=== PATIENT | female | born 1950 | race American Indian/Alaskan Native ===

== ENCOUNTER 2017-04-13 22:05 | Inpatient (IN) | payer OTHER ==
[2017-04-13 22:51] LABS: Basophils % (Auto) 1.4 % (0.0-1.8); Eosinophils % (Auto) 3.9 % (0.0-4.3); Hemoglobin 19.5 gm/dl (10.1-14.3); Mean Corpuscular HGB Conc 32 % (30-34); Mean Corpuscular Hemoglobin 26 pg (28-32); Mean Corpuscular Volume 82 fl (79-97); Red Blood Count 7.41 M/mm3 (3.65-5.03); Red Cell Distribution Width 15.9 % (13.2-15.2); White Blood Count 6.9 K/mm3 (4.5-11.0)
[2017-04-13 22:55] LABS: Platelet Count 566 K/mm3 (140-440)
[2017-04-13 22:59] LABS: Hematocrit 60.9 % (30.3-42.9)
[2017-04-13 23:05] LABS: Anion Gap 22 mmol/L; BUN/Creatinine Ratio 12.85; Blood Urea Nitrogen 9 mg/dL (7-17); Calcium 9.4 mg/dL (8.4-10.2); Carbon Dioxide 22 mmol/L (22-30); Chloride 94.3 mmol/L (98-107); Glucose 134 mg/dL (65-100); Potassium 3.3 mmol/L (3.6-5.0); Sodium 135 mmol/L (137-145)
[2017-04-14 00:40] LABS: Bilirubin,Urine NEG (Negative); Blood,Urine NEG (Negative); Ketones,Urine TR mg/dL (Negative); Leukocyte Esterase,Urine TR (Negative); Mucus,Urine FEW /HPF; Nitrite,Urine NEG (Negative); Urobilinogen,Urine < 2.0 mg/dL (<2.0)
[2017-04-14] MEDS ORDERED: NACL 0.9% 1000 ML 1,000 ML IV ONE (00:41)
[2017-04-14] MEDS ORDERED: K-DUR PO ONE (00:41)
--- NOTE | 2017-04-14 00:44 | Emergency Department Report ---
HPI - General Chief Complaint: Abdominal Pain Time Seen by Provider: 04/14/17 00:29 - HPI HPI: This is a 67-year-old female who presents to the emergency department with her daughter bedside, who is translating, with complaint of a three-day history of some generalized abdominal discomfort. The patient has a history of chronic left inguinal hernia and says the pain starts in that region and goes throughout the entire abdomen. She denies any nausea, vomiting or diarrhea. She does have a decreased appetite and therefore has not been eating much and therefore has not had a bowel movement in the last 3 days. She denies any abdominal distention. She did not take anything for symptoms prior to presentation. She just came here from [place], she does not have any local primary care physician. She has a past medical history of hypertension and this hernia. She is not a tobacco smoker. ED Past Medical Hx - Past Medical History Previous Medical History?: Yes Hx Hypertension: Yes Additional medical history: ABD HERNIA - Surgical History Past Surgical History?: No - Social History Smoking Status: Never Smoker Substance Use Type: None ED Review of Systems ROS: Stated complaint: CP Other details as noted in HPI Comment: All other systems reviewed and negative Constitutional: denies: chills, fever Eyes: denies: eye pain, eye discharge, vision change ENT: denies: ear pain, throat pain Respiratory: denies: cough, shortness of breath, wheezing Cardiovascular: denies: palpitations, edema Gastrointestinal: abdominal pain. denies: nausea, vomiting, diarrhea Genitourinary: denies: urgency, dysuria, discharge Musculoskeletal: denies: back pain, joint swelling, arthralgia Skin: denies: rash, lesions Neurological: denies: headache, weakness, paresthesias Physical Exam - Physical Exam Vital Signs: Vital Signs 04/13/17 22:15 Temperature 97.6 F Pulse Rate 116 H Respiratory 20 Rate Blood Pressure 142/106 O2 Sat by Pulse 98 Oximetry Physical Exam: GENERAL: The patient is well-developed well-nourished. HEENT: Normocephalic. Atraumatic. Extraocular motions are intact. Patient has moist mucous membranes. Pupils equal reactive to light bilaterally. NECK: Supple. Trachea is midline. CHEST/LUNGS: Clear to auscultation. There is no respiratory distress noted. HEART/CARDIOVASCULAR: Regular. There is no tachycardia. There is no gallop rub or murmur. ABDOMEN: Abdomen is soft. There is some lower abdominal tenderness to palpation. No guarding rebound tenderness. Patient has normal bowel sounds. There is no abdominal distention. There is a reducible left inguinal hernia. SKIN: Skin is warm and dry. NEURO: The patient is awake, alert, and oriented. The patient is cooperative. The patient has no focal neurologic deficits. The patient has normal speech. MUSCULOSKELETAL: There is no tenderness or deformity. There is no limitation range of motion. There is no evidence of acute injury. ED Course Vital Signs 04/13/17 22:15 Temperature 97.6 F Pulse Rate 116 H Respiratory 20 Rate Blood Pressure 142/106 O2 Sat by Pulse 98 Oximetry ED Medical Decision Making - Lab Data Result diagrams: 04/13/17 22:29 04/13/17 22:29 - EKG Data -: EKG Interpreted by Me EKG shows normal: sinus rhythm, axis, intervals, QRS complexes (Q wave to the inferior lead, lead 3), ST-T waves (nonspecific ST-T changes) Rate: tachycardia (120 bpm) - EKG Data When compared to previous EKG there are: previous EKG unavailable Interpretation: other (Q-wave to the inferior lead, lead 3, nonspecific ST-T changes) - Radiology Data Radiology results: report reviewed, image reviewed interpreted by me: Chest x-ray does not show any acute process. Mild hyperinflation of the lungs. No pneumonia, pleural effusion or pneumothorax. Transvaginal ultrasound does not show any torsion. There is a normal-appearing uterus and right ovary but the left ovary is not visualized. MRI of the pelvis is recommended. CT angiography of the chest shows no evidence of pulmonary arterial emboli. COPD with myelofibrosis. No consolidation or effusion. CT of the abdomen and pelvis with IV contrast shows a complex cystic mass identified in the left adnexal region that measures 4 x 3 x 4 cm. There is some fat density in this region. The differential is extensive and will include benign and malignant entities. No evidence of intestinal or urinary tract obstruction. No ileus or enteritis. Moderate fecal debris throughout the colon consistent with constipation. Left inguinal hernia with minimal fat and a nondilated loop of bowel identified in the hernia cavity. - Medical Decision Making 67-year-old female presents emergency Department with her daughter with complaint of some abdominal pain that radiates into her chest. She has a reducible inguinal hernia but this does not appear to be the cause of her discomfort as it is not tender to palpation and it is in fact reducible. Labs show polycythemia with a hematocrit of 60 and hemoglobin of almost 20. Patient had negative troponins 2 this far. With her abdominal and chest pains she had a CT of the abdomen and pelvis and a CT angiography of the chest. CT of the chest does not show any PE or any acute process. CT of the abdomen and pelvis shows concern for a complex left adnexal mass. They recommended ultrasound for further evaluation but the ultrasound was done and did not help there were down in the differential. The patient still continues to have these abdominal discomfort that radiated to the chest. For this reason she'll be admitted to the hospital for further evaluation and treatment. - Differential Diagnosis malignancy, PE, IA, colitis, diverticulitis, hernia Critical Care Time: No Critical care attestation.: If time is entered above; I have spent that time in minutes in the direct care of this critically ill patient, excluding procedure time. ED Disposition Clinical Impression: Polycythemia, Ovarian mass Chest pain Qualifiers: Chest pain type: unspecified Qualified Code(s): R07.9 - Chest pain, unspecified Abdominal pain Qualifiers: Abdominal location: generalized Qualified Code(s): R10.84 - Generalized abdominal pain Hypertension Qualifiers: Hypertension type: essential hypertension Qualified Code(s): I10 - Essential ( primary) hypertension Disposition: OP ADMIT IP TO THIS HOSP Is pt being admited?: Yes Condition: Stable Instructions: Abdominal Pain (ED), Chest Pain (ED), Hypertension (ED) Time of Disposition: 05:25
--- NOTE | 2017-04-14 02:19 | Cat Scan Report ---
FINAL REPORT PROCEDURE: CT ANGIO CHEST TECHNIQUE: Computerized tomographic angiography of the chest was performed after the IV injection of iodinated nonionic contrast including image processing. The image data was postprocessed using 2-dimensional multiplanar reformatted (MPR) and 3-dimensional (MIP and/or volume rendered) techniques. HISTORY: chest pain COMPARISON: No prior studies are available for comparison. FINDINGS: Heart and pericardium: Normal. Thoracic aorta: Normal. Pulmonary vasculature: Normal. Lymph nodes: No enlarged thoracic lymph nodes. Lungs: COPD with mild fibrosis. No consolidation, effusion or pneumothorax. The central airway is patent.. Pleural space: No effusion, thickening, or pneumothorax. Musculoskeletal structures: No significant abnormality. Upper abdominal structures: No significant abnormality. IMPRESSION: There is no evidence of pulmonary arterial emboli. COPD with mild fibrosis. No consolidation or effusion.
--- NOTE | 2017-04-14 02:29 | Cat Scan Report ---
FINAL REPORT PROCEDURE: CT ABDOMEN PELVIS W CON TECHNIQUE: Computerized axial tomography of the abdomen and pelvis was performed after the IV injection of iodinated nonionic contrast. HISTORY: Abd pain COMPARISON: No prior studies are available for comparison. FINDINGS: Visualized lower thorax: No significant abnormality. Liver: Normal size and attenuation. Spleen: Normal size and attenuation. Gallbladder and biliary system: Normal. Pancreas: Normal. Adrenals: Normal. Kidneys: Normal. GI tract: The stomach is normal. Small has a normal caliber. No obstruction, ileus or enteritis. Significant fecal debris identified throughout the colon. The appendix region is normal.. Lymph nodes and mesentery: Normal. Vasculature: Normal. Bladder: Normal. Reproductive organs: The uterus has a normal appearance. In the left adnexal region there is a complex mass measuring 4 x 3 x 4 centimeters. This contains some fat tissue, the differential is extensive and will include benign and malignant entities. Further investigation with ultrasound would be of benefit.. Peritoneum: No free fluid. Musculoskeletal structures: No significant abnormality. Other: Left inguinal hernia with minimal fat and a nondilated loop of bowel identified within the hernia cavity.. IMPRESSION: There is a complex cystic mass identified in the left adnexal region this measures 4 x 3 x 4 centimeters. There is some fat density this region. The differential is extensive and will include benign and malignant entities. Further investigation with ultrasound would be of benefit. The uterus has a normal appearance. No evidence of intestinal or urinary tract obstruction. No ileus or enteritis. Moderate fecal debris throughout the colon consistent with constipation. Left inguinal hernia with minimal fat and a nondilated loop of bowel identified in the hernia cavity.
--- NOTE | 2017-04-14 04:20 | Ultrasound Report ---
FINAL REPORT PROCEDURE: US TRANSVAGINAL TECHNIQUE: Real-time transabdominal sonography in multiple planes of the pelvis was performed. The pelvic structures were not optimally visualized. Transvaginal sonography was then performed to better evaluate the structures and/or abnormalities described below with image documentation. Grayscale, color flow Doppler imaging and velocity spectral waveform analysis of the ovaries was employed (duplex imaging). CPT 63170, 69218, and 30660 HISTORY: ovarian mass, pain COMPARISON: CT abdomen and pelvis of the same date FINDINGS: UTERUS Size: 6.9 x 2.4 x 4.4 cm. Endometrial thickness: 4 mm. Orientation: anteverted. Cervix: Normal. Fibroids/masses: None. RIGHT Ovary: 2.1 x 1.1 x 1.1 cm. Appearance: Normal. Doppler images: Normal spectral waveforms and color flow. The systolic and diastolic velocities are within normal limits. LEFT Ovary: Not visualized on this study Pelvic fluid: None. Other: None. IMPRESSION: The uterus and right ovary have normal size and appearance. The left ovary is not visualized. Further evaluation of the lower pelvic structures with MRI may be appropriate.
--- NOTE | 2017-04-14 04:22 | Ultrasound Report ---
FINAL REPORT PROCEDURE: Pelvic ultrasound, transabdominal and transvaginal. TECHNIQUE: Real-time transabdominal sonography in multiple planes of the pelvis was performed. The pelvic structures were not optimally visualized. Transvaginal sonography was then performed to better evaluate the structures and/or abnormalities described below with image documentation. Grayscale, color flow Doppler imaging and velocity spectral waveform analysis of the ovaries was employed (duplex imaging). CPT 00454, 86550, and 79305 HISTORY: ovarian mass, pain COMPARISON: CT abdomen and pelvis of the same date FINDINGS: UTERUS Size: 6.9 x 2.4 x 4.4 cm. Endometrial thickness: 4 mm. Orientation: anteverted. Cervix: Normal. Fibroids/masses: None. RIGHT Ovary: 2.1 x 1.1 x 1.1 cm. Appearance: Normal. Doppler images: Normal spectral waveforms and color flow. The systolic and diastolic velocities are within normal limits. LEFT Ovary: Not visualized on this study Pelvic fluid: None. Other: None. IMPRESSION: The uterus and right ovary have normal size and appearance. The left ovary is not visualized. Further evaluation of the lower pelvic structures with MRI may be appropriate.
[2017-04-14] MEDS ORDERED: TYLENOL PO PRN (08:02)
[2017-04-14] MEDS ORDERED: MILK OF MAGNESIA PO PRN (08:02)
[2017-04-14] MEDS ORDERED: ZOFRAN IV PRN (08:02)
[2017-04-14] MEDS ORDERED: MORPHINE IV PRN (08:02)
[2017-04-14] MEDS ORDERED: DULCOLAX PR PRN (08:02)
[2017-04-14] MEDS ORDERED: PROTONIX IV ONE (08:14)
[2017-04-14] MEDS ORDERED: DILAUDID IV PRN (08:18)
--- NOTE | 2017-04-14 09:40 | XRay Report ---
AP CHEST :04/14/17 00:42:00 CLINICAL: Cough. COMPARISON:None. FINDINGS: Normal heart and pulmonary vasculature. Mild elevation of the left hemidiaphragm and mild left basal subsegmental atelectasis versus scar. The bones and soft tissues are normal. IMPRESSION: Mild left lower lobe atelectasis versus scar.No CHF or pneumonia.
[2017-04-14] MEDS ORDERED: PROTONIX IV SCH (10:00)
--- NOTE | 2017-04-14 11:46 | Event Note ---
Date: 04/14/17 Received a call for consult on this patient but patient presently down for MRI. Pelvic ultrasound and CT scan results noted and reviewed. Will await the results of her MRI to get a better image of the adnexal mass.
--- NOTE | 2017-04-14 12:17 | Magnetic Resonance Report ---
MRI PELVIS WITHOUTAND WITH CONTRAST: 04/14/17 08:02:00 CLINICAL: Left lower quadrant abdominal pain. Left adnexal mass. COMPARISON : 04/14/17 CT abdomen and pelvis and transvaginal and abdominal pelvic ultrasound. TECHNIQUE: Sagittal, coronal and axial T1 and T2 fat sat sequences plus sagittal, coronal and axial postcontrast T1 fat sequences on a 1.5 Antonella magnet. 15 cc of Multihance was injected intravenously for the contrast portion of the exam. Consent was obtained prior to the administration of contrast. FINDINGS: Normal uterine contour, size and signal. No uterine mass or fibroid. The uterus measures approximately 7.0 cm in length by 3.2 cm AP dimension by 2.5 cm transverse dimension. The endometrium is thickened and measures 8.2 mm AP thickness. The right ovary is normal and measures 2.6 x 1.5 x 2.0 cm. A left adnexal mass presumably arises from the left ovary. This predominant fat signal mass is oval and measures 3.4 x 2.9 x 2.3 cm. No other mass and no free fluid. The rectum and sigmoid colon are normal. The urinary bladder is displaced to the right of midline but is otherwise normal. The bones and soft tissues are normal. IMPRESSION: 1. A 3.4 cm benign dermoid cyst of the left ovary. No other mass. 2. Thick postmenopausal endometrium and otherwise normal uterus. 3. Normal right ovary. 4. No signs to suggest ovarian torsion.
[2017-04-14] MEDS: LOVENOX SUB-Q SCH (13:28)
[2017-04-14] MEDS: NACL 0.9% 1000 ML 1,000 ML IV SCH ×2 (13:30→23:41)
--- NOTE | 2017-04-14 13:54 | History and Physical Report ---
History of Present Illness Date of examination: 04/14/17 Date of admission: 04/14/17 08:02 Chief complaint: Left lower abdominal pain History of present illness: The patient is a 67 years old female with a three day history of worsening abdominal pain. The patient states that for the past five days she has felt bloated and has had a decrease in appetite. three days ago she began having intermittent abdominal pain that initially felt like gas pains but it has now progressed to being nearly constant. The patient has a chronic left inguinal hernia and she reports the pain starts in that area and goes throughout the abdomen. Since yesterday she has had severe abdominal pain. Her last bowel movement was over 3 days ago. She has a history of intermittent constipation but never with this level of pain. Currently, the pain is described as a constant dull, diffuse pain that intermittently becomes sharp and well localized. The sharp pain tends to occur in different locations at different times. The intensity of the pain has been increasing over the past two days and on pain scale she now rates the pain at 8 out of 10. She did not take anything to relief the pain. She denies a recent history of fever, nausea, vomiting, diarrhea, hemoptysis, melena, or hematochezia. She denies a known history of diverticulitis, colon cancer, peptic ulcer disease, gastritis, acid reflux, gall bladder disease or cholelithiasis. She denies a history of smoking or alcohol consumption. Patient has past medical history of hypertension but currently she is not taken her blood pressure medication.Patient also mentioned that she just came in from [place] therefore she does not have a local primary care physician. Past History Past Medical History: hypertension, other (Left inguinal hernia) Past Surgical History: No surgical history Social history: Family history: hypertension Medications and Allergies Allergies Allergy/AdvReac Type Severity Reaction Status Date / Time No Known Allergies Allergy Verified 04/14/17 08:24 Home Medications Medication Instructions Recorded Confirmed Last Taken Type Acetaminophen/Codeine [Tylenol 1 tab PO Q6H PRN #30 tab 04/15/17 Unknown Rx /Codeine # 3 tab] Aspirin EC [Aspirin Enteric Coated 81 mg PO QDAY #30 tablet. 04/15/17 Unknown Rx TAB] Temazepam [Restoril] 15 mg PO QHS PRN #15 capsule 04/15/17 Unknown Rx Active Meds: Active Medications Acetaminophen (Tylenol) 650 mg PO Q4H PRN PRN Reason: Pain MILD(1-3)/Fever >100.5/PATEL Bisacodyl (Dulcolax) 10 mg MA QDAY PRN PRN Reason: Constipation unrelieved by MOM Enoxaparin Sodium (Lovenox) 40 mg SUB-Q DAILY [facility] Sodium Chloride (Nacl 0.9% 1000 Ml) 1,000 mls @ 100 mls/hr IV DIRECT LUANN Magnesium Hydroxide (Milk Of Magnesia) 30 ml PO Q4H PRN PRN Reason: Constipation Morphine Sulfate (Morphine) 2 mg IV Q4H PRN PRN Reason: Pain, Moderate (4-6) Ondansetron HCl (Zofran) 4 mg IV Q4H PRN PRN Reason: N/V unrelieved by Reglan Temazepam (Restoril) 15 mg PO QHS [facility] Review of Systems Constitutional: poor appetite, no weight loss, no weight gain, no fever, no chills, no sweats Ears, nose, mouth and throat: no ear pain, no ear discharge, no tinnitis Breasts: normal Cardiovascular: no chest pain, no orthopnea, no palpitations, no rapid/ irregular heart beat, no syncope, no lightheadedness Respiratory: no cough, no cough with sputum, no excessive sputum, no hemoptysis Gastrointestinal: abdominal pain, constipation, loss of appetite, no nausea, no vomiting, no diarrhea, no hematemesis, no melena Genitourinary Female: no dyspareunia, no dysmenorrhea, no pelvic pain, no flank pain, no urinary frequency, no urgency Musculoskeletal: no neck stiffness, no neck pain, no shooting arm pain Integumentary: no rash, no pruritis Neurological: no head injury, no transient paralysis Psychiatric: no memory loss, no change in sleep habits, no sleep disturbances Endocrine: no cold intolerance, no heat intolerance, no polyphagia, no excessive thirst Hematologic/Lymphatic: no easy bruising, no easy bleeding Allergic/Immunologic: no urticaria, no allergic rhinitis Exam - Constitutional Vitals: Temp Pulse Resp BP Pulse Ox 98.4 F 70 18 134/88 100 04/14/17 10:33 04/14/17 10:33 04/14/17 10:33 04/14/17 10:33 04/14/17 09:27 General appearance: Present: no acute distress, well-nourished - EENT Eyes: Present: PERRL, EOM intact ENT: hearing intact, clear oral mucosa, dentition normal - Neck Neck: Present: supple, normal ROM - Respiratory Respiratory effort: normal - Cardiovascular Heart Sounds: Present: S1 & S2. Absent: rub, click - Extremities Extremities: pulses symmetrical, No edema Peripheral Pulses: within normal limits - Abdominal General gastrointestinal: Present: soft, tender, hernia (Inguinal , reproducible ) Localized gastrointestinal: guarding: LUQ, LLQ Female genitourinary: Present: normal - Rectal Rectal Exam: deferred - Integumentary Integumentary: Present: clear, warm, dry - Musculoskeletal Musculoskeletal: strength equal bilaterally - Psychiatric Psychiatric: appropriate mood/affect, intact judgment & insight - Neurologic Neurologic: CNII-XII intact, moves all extremities Results - Labs CBC & Chem 7: 04/15/17 05:12 04/15/17 05:12 Labs: Laboratory Last Values WBC 6.9 K/mm3 (4.5-11.0) 04/13/17 22:29 RBC 7.41 M/mm3 (3.65-5.03) H 04/13/17 22:29 Hgb 19.5 gm/dl (10.1-14.3) H 04/13/17 22:29 Hct 60.9 % (30.3-42.9) H* 04/13/17 22:29 MCV 82 fl (79-97) 04/13/17 22:29 MCH 26 pg (28-32) L 04/13/17 22:29 MCHC 32 % (30-34) 04/13/17 22:29 RDW 15.9 % (13.2-15.2) H 04/13/17 22:29 Plt Count 566 K/mm3 (140-440) H 04/13/17 22:29 Lymph % (Auto) 44.3 % (13.4-35.0) H 04/13/17 22:29 [place] % (Auto) 10.8 % (0.0-7.3) H 04/13/17 22:29 Eos % (Auto) 3.9 % (0.0-4.3) 04/13/17 22:29 Baso % (Auto) 1.4 % (0.0-1.8) 04/13/17 22:29 Lymph # 3.1 K/mm3 (1.2-5.4) 04/13/17 22:29 [place] # 0.7 K/mm3 (0.0-0.8) 04/13/17 22:29 Eos # 0.3 K/mm3 (0.0-0.4) 04/13/17 22:29 Baso # 0.1 K/mm3 (0.0-0.1) 04/13/17 22:29 Seg Neutrophils % 39.6 % (40.0-70.0) L 04/13/17 22:29 Seg Neutrophils # 2.7 K/mm3 (1.8-7.7) 04/13/17 22:29 Sodium 135 mmol/L (137-145) L 04/13/17 22:29 Potassium 3.3 mmol/L (3.6-5.0) L 04/13/17 22:29 Chloride 94.3 mmol/L (98-107) L 04/13/17 22:29 Carbon Dioxide 22 mmol/L (22-30) 04/13/17 22:29 Anion Gap 22 mmol/L 04/13/17 22:29 BUN 9 mg/dL (7-17) 04/13/17 22:29 Creatinine 0.7 mg/dL (0.7-1.2) 04/13/17 22:29 Estimated GFR > 60 ml/min 04/13/17 22:29 BUN/Creatinine Ratio 12.85 % 04/13/17 22:29 Glucose 134 mg/dL (65-100) H 04/13/17 22:29 Lactic Acid 1.20 mmol/L (0.7-2.0) 04/14/17 01:01 Calcium 9.4 mg/dL (8.4-10.2) 04/13/17 22:29 Troponin T < 0.010 ng/mL (0.00-0.029) 04/14/17 04:46 Lipase 19 units/L (13-60) 04/13/17 22:29 Urine Color Yellow (Yellow) 04/13/17 23:41 Urine Turbidity Clear (Clear) 04/13/17 23:41 Urine pH 5.0 (5.0-7.0) 04/13/17 23:41 Ur Specific [place] 1.010 (1.003-1.030) 04/13/17 23:41 Urine Protein 100 mg/dl mg/dL (Negative) 04/13/17 23:41 Urine Glucose (UA) Neg mg/dL (Negative) 04/13/17 23:41 Urine Ketones Tr mg/dL (Negative) 04/13/17 23:41 Urine Blood Neg (Negative) 04/13/17 23:41 Urine Nitrite Neg (Negative) 04/13/17 23:41 Urine Bilirubin Neg (Negative) 04/13/17 23:41 Urine Urobilinogen < 2.0 mg/dL (<2.0) 04/13/17 23:41 Ur Leukocyte Esterase Tr (Negative) 04/13/17 23:41 Urine WBC (Auto) 5.0 /HPF (0.0-6.0) 04/13/17 23:41 Urine RBC (Auto) 2.0 /HPF (0.0-6.0) 04/13/17 23:41 U Epithel Cells (Auto) < 1.0 /HPF (0-13.0) 04/13/17 23:41 Urine Mucus Few /HPF 04/13/17 23:41 - Imaging and Cardiology Chest x-ray: image reviewed (Normal) Abdominal x-ray: pending CT scan - abdomen: image reviewed (shows a complex cystic ovarian mass) CT scan - chest: image reviewed (COPD with mild fibrosis. No consolidation or effusion) CT scan - pelvis: image reviewed (Ovarian mass), other US - abdomen: image reviewed, other (Transvaginal Normal) MRI - abdomen: image reviewed (1. A 3.4 benign dermoid of the left ovary. No other mass. 2. Thick postmenopausal endometrium and otherwise normal uterus. 3. Normal right ovary.4. No sign to suggest ovarian torsion.) Assessment and Plan Assessment and plan: 1. Generalized Abdominal Pain We will admit to MED/SURG floor Pain controlled with Morphine IVF hydration CT of the abdomen/ Pelvis shows 4x3x4 cm complex cystic mass Cardiac diet 2. complex cystic adnexal mass Ovarian mass history MRI shows a 3.4 cm benign dermoid of the left ovarian , no other mass, thick postmenopausal endometrium and otherwise normal uterus, normal right ovary,no sign to suggest ovarian torsion. 3. Polycythemia Elevated Hgb, HCT and plateate count consulted server security administrator for further evaluation IVF Hydration Lovenox order 4. Hypokalemia Potassium replaced in the ED We will repeat BMP close monitor Electrolytes 4. Left inguinal Hernia CT of the abdomen/Pelvis shows no bowel obstruction or strangulation Discussed with patient to follow up with Primary care provider as OP VTE/GI Prophylaxis Lovenox/Pepcid Plan of care discussed with patient/family: Yes
[2017-04-14 15:24] LABS: Hemoglobin 18.1 gm/dl (10.1-14.3); Mean Corpuscular HGB Conc 32 % (30-34); Mean Corpuscular Hemoglobin 26 pg (28-32); Mean Corpuscular Volume 82 fl (79-97); Platelet Count 481 K/mm3 (140-440); Red Blood Count 6.89 M/mm3 (3.65-5.03); Red Cell Distribution Width 15.6 % (13.2-15.2); White Blood Count 7.8 K/mm3 (4.5-11.0)
--- NOTE | 2017-04-14 15:41 | Consultation ---
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 Patient recently arrived here from [place] was seen in emergency room for abdominal pain. During a workup she received a pelvic ultrasound which had no significant findings abdominal pelvic CT scan which saw adnexal mass and was followed with MRI which included that the patient had 3.4 cm dermoid cyst. Consulted time prior to knowing the results an MRI. Patient presently is lying in hospital bed with minimal complaints states her abdominal pain feels much better. Patient said her last menstrual period was approximately 18 years ago and has no further bleeding since. Past History Past Medical History: hypertension, other (inguinal hernia) Past Surgical History: no surgical history Medications and Allergies Allergies Allergy/AdvReac Type Severity Reaction Status Date / Time No Known Allergies Allergy Verified 04/14/17 08:24 Home Medications Medication Instructions Recorded Confirmed Last Taken Type No Known Home Medications [No 04/14/17 04/14/17 Unknown History Reported Home Medications] Active Meds: Active Medications Acetaminophen (Tylenol) 650 mg PO Q4H PRN PRN Reason: Pain MILD(1-3)/Fever >100.5/PATEL Bisacodyl (Dulcolax) 10 mg [place] QDAY PRN PRN Reason: Constipation unrelieved by MOM Enoxaparin Sodium (Lovenox) 40 mg SUB-Q DAILY [facility] Last Admin: 04/14/17 13:28 Dose: 40 mg Sodium Chloride (Nacl 0.9% 1000 Ml) 1,000 mls @ 100 mls/hr IV DIRECT LUANN Last Admin: 04/14/17 13:30 Dose: 100 mls/hr Magnesium Hydroxide (Milk Of Magnesia) 30 ml PO Q4H PRN PRN Reason: Constipation Morphine Sulfate (Morphine) 2 mg IV Q4H PRN PRN Reason: Pain, Moderate (4-6) Ondansetron HCl (Zofran) 4 mg IV Q4H PRN PRN Reason: N/V unrelieved by Reglan Temazepam (Restoril) 15 mg PO QHS [facility] Review of Systems Gastrointestinal: abdominal pain Genitourinary: deferred, genital sores, no vaginal bleeding, no vaginal discharge, no pelvic pain - Vital Signs Vital signs: Vital Signs Temp Pulse Resp BP Pulse Ox 97.6 F 116 H 20 142/106 98 04/13/17 22:15 04/13/17 22:15 04/13/17 22:15 04/13/17 22:15 04/13/17 22:15 Temp Pulse Resp BP Pulse Ox 98.4 F 70 18 134/88 100 04/14/17 10:33 04/14/17 10:33 04/14/17 10:33 04/14/17 10:33 04/14/17 09:27 - Physical Exam Breasts: Positive: deferred Cardiovascular: Regular rate Abdomen: Positive: normal appearance, soft. Negative: tenderness, guarding Results Result Diagrams: 04/14/17 15:04 04/13/17 22:29 Abnormal lab results 04/14/17 Range/Units 15:04 RBC 6.89 H (3.65-5.03) M/mm3 Hgb 18.1 H (10.1-14.3) gm/dl MCH 26 L (28-32) pg RDW 15.6 H (13.2-15.2) % Plt Count 481 H (140-440) K/mm3 All other labs normal. Assessment and Plan - Patient Problems (1) Ovarian mass Current Visit: Yes Status: Chronic Plan to address problem: Findings on imaging of a dermoid cyst most likely a chronic condition. Due to the size of the cyst unlikely to cause of severe pain. Minute imaging didn't show any ascites or characteristics of malignancy of her adnexa. Further discussion with who actually can communicate with the patient and her family feels that most likely patient and her family brought her to the hospital as customary patient is a newly arrived in [facility] from [place] to have her checked out medically. I believe was found on imaging is benign and not causing any problems. Will sign off. 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
[2017-04-14 15:45] LABS: Hematocrit 56.4 % (30.3-42.9)
[2017-04-14] MEDS: MORPHINE IV PRN (20:27)
[2017-04-14] MEDS ORDERED: RESTORIL PO SCH (22:00)
[2017-04-15] MEDS: MORPHINE IV PRN ×2 (01:45→05:39)
--- NOTE | 2017-04-15 04:18 | Admit Criteria Form ---
Admission Criteria Documentation: ABDOMINAL PAIN Clinical Indications for Admission to Inpatient Care (Place 'X' for any and all applicable criteria): Admission is indicated for ANY ONE of the following(1)(2)(3)(4)(5): [X ]I. Inpatient admission required rather than observation care (Also use Abdominal Pain: Observation Care, as appropriate) because of ANY ONE of the following: [X ]a) Severe pain requiring acute inpatient management [X ]b) Identification of etiology/finding that requires inpatient care (eg, aortic dissection, free air) [ ]c) Absent bowel sounds with complete ileus(6) [ ]d) Suspected toxic megacolon [ ]e) Severe electrolyte abnormalities requiring inpatient care [ ]f) High fever or infection requiring inpatient admission as indicated by ANY ONE of following(7)(8): [ ] i) Appropriate outpatient or observational care antimicrobial treatment unavailable, not effective, or not feasible [ ] ii) Documented bacteremia [ ] iii) Temperature > 104.9 degrees F (oral) [ ] iv) T >103.1 F (oral) or < 96.8 F(rectal) that does not respond to all emergency treatment measures [ ]g) Signs of intestinal obstruction [B] [ ]h) Hemodynamic instability [ ]i) IV fluid to replace significant ongoing losses (greater than 3 L/m2 per day) (12)(13) [ ]j) Percutaneous or open drainage (eg, abscess, biliary tract ) procedures [ ]k) Parenteral nutrition regimen that must be implemented on inpatient basis [ ]l) Other condition,treatment or monitoring requiring inpatient admission. [ ]II. Peritoneal signs present [ ]III. Surgery needed that cannot be performed on an ambulatory basis. [ ]IV. Evaluation requires patient to not eat or drink for extended period ( eg, more than 24 hours). [ ]V. Contraindications and/or Inappropriate clinical situations for Observational Care in patients with abdominal pain, when ANY ONE of the following is required: [ ]a) Thorough evaluation is required to prevent catastrophic events due to delays in diagnosing (e.g.Mesenteric ischemia) 1,3 [ ]b) Patient with severe pathology or with chronic symptoms unlikely to improve in the ED stay (3) [X ]. General contraindications and/or Inappropriate clinical situations for Observational Care in patients with abdominal pain, when ANY ONE of the following is required: [X ]a) Prediction of prolongation of LOS based on ANY ONE of the following may be considered as a contraindication for observational care 2, 3, 4, 5, 6, 7, 8, 9, 10, 11 [X ]i) Age > 65 yrs. [ ]ii) Patient arriving by ambulance [ ]iii) Patient with high acuity [ ]iv) Patient requiring vital sign monitoring [ ]v) Patient on IV medication [ ]b) Systolic blood pressures 180mmHg 3,12 [ ]c) Patient with altered mental status including delirium and other alteration of consciousness, (3) [ ]d) Patient whose discharge disposition will be to a [facility] home or rehabilitation home should not be managed in Emergency Department Observation Unit. CMS rule requires 3 days hospital stay before such placement.3,13 [ ]e) Patient with failure to thrive due to broad array of etiologies 3,16,17 [ ]f) Inability to ambulate 3,14 Extended stay beyond goal length of stay may be needed for(2)(3): [ ]a) Persistent abdominal pain with suspected intra-abdominal process [ ]b) Diagnosed condition requiring continued stay (e.g., pancreatitis, complicated diverticulitis) [ ]c) Surgery (e.g., colectomy) The original [facility] content created by [employer] has been revised. The portions of the content which have been revised are identified through the use of italic text or in bold, and [facility] has neither reviewed nor approved the modified material.All other unmodified content is copyright [employer] Please see references footnoted in the original [facility] edition 2016 Admission Criteria Met: Yes
[2017-04-15 06:01] LABS: Hematocrit 54.1 % (30.3-42.9); Hemoglobin 17.6 gm/dl (10.1-14.3); Mean Corpuscular HGB Conc 33 % (30-34); Mean Corpuscular Hemoglobin 26 pg (28-32); Mean Corpuscular Volume 81 fl (79-97); Platelet Count 460 K/mm3 (140-440); Red Blood Count 6.66 M/mm3 (3.65-5.03); Red Cell Distribution Width 15.4 % (13.2-15.2); White Blood Count 5.4 K/mm3 (4.5-11.0)
[2017-04-15 06:10] LABS: INR 1.29 (0.87-1.13)
[2017-04-15 06:19] LABS: Anion Gap 16 mmol/L; BUN/Creatinine Ratio 8.33; Blood Urea Nitrogen 5 mg/dL (7-17); Calcium 8.5 mg/dL (8.4-10.2); Carbon Dioxide 24 mmol/L (22-30); Chloride 105.4 mmol/L (98-107); Glucose 82 mg/dL (65-100); Potassium 3.9 mmol/L (3.6-5.0); Sodium 141 mmol/L (137-145)
[2017-04-15 06:51] LABS: Anisocytosis 1+; Blastocytes % (Manual) 0 %; Macrocytosis 1+
[2017-04-15 06:52] LABS: Diff Status Complete; Platelet Estimate Consistent w Auto
--- NOTE | 2017-04-15 07:41 | Discharge Summary ---
Providers - Providers Date of Admission: 04/14/17 08:02 Attending physician: CHERYL CALDERON MD 04/14/17 10:25 Consult to Physician [CONS] Routine Consulting Provider: SUKUMAR NORRIS Reason For Exam: polycythemia Place consult to:: DR. JURADO Notified:: DR. JURADO Phone number called:: [phone] Was contact made?: Yes If yes, spoke with:: DR. JURADO Time called:: 11:39 Comment:: MONTSE NOTIFIED Primary care physician: RESIDENTIAL YOUTH COUNSELOR Hospitalization Condition: Stable Hospital course: 67F who pw abdominal pain. She admitted to having a chronic left inguinal hernia , she has abdominal Imaging that was suspicious for an ovarian mass, however she went on to have a pelvic MRI which only showed a benign dermoid cysts. She also had a left inguinal hernia which was perfectly reducible, it was not incarcerated, CT of her abdomen confirmed this. She also had hypokalemic which was repleted, she was found to have significant polycythemia, given the patient has no smoking history no history of cancer she was started on empiric aspirin therapy. She was referred to a bricklayer tender who she should see as an outpatient. Abdominal pain completely resolved prior to discharge. She was discharged home in improved condition Discharge diagnoses Polycythemia Abdominal pain Left ovarian Dermoid cyst Left inguinal hernia, nonincarcerated Hypokalemia Disposition: TO HOME OR SELFCARE Time spent for discharge: 35 minutes Core Measure Documentation - Palliative Care Palliative Care/ Comfort Measures: Not Applicable - Core Measures Any of the following diagnoses?: none Exam - Constitutional Vitals: Temp Pulse Resp BP Pulse Ox 98.9 F 65 18 129/80 97 04/14/17 23:00 04/14/17 23:00 04/14/17 23:00 04/14/17 23:00 04/14/17 23:00 General appearance: Present: no acute distress, well-nourished - EENT Eyes: Present: PERRL ENT: hearing intact, clear oral mucosa - Neck Neck: Present: supple, normal ROM - Respiratory Respiratory effort: normal Respiratory: bilateral: CTA - Cardiovascular Heart Sounds: Present: S1 & S2. Absent: rub, click - Extremities Extremities: pulses symmetrical, No edema Peripheral Pulses: within normal limits - Abdominal General gastrointestinal: Present: soft, non-tender, non-distended, normal bowel sounds Female genitourinary: Present: normal - Integumentary Integumentary: Present: clear, warm, dry - Musculoskeletal Musculoskeletal: gait normal, strength equal bilaterally - Psychiatric Psychiatric: appropriate mood/affect, intact judgment & insight - Neurologic Neurologic: CNII-XII intact, moves all extremities Plan Additional Instructions: You need to see a bricklayer tender in clinic for further workup, details of Dr Mccauley have been included for you, please call and make an appointment. Follow up with: PRIMARY CARE, [Primary Care Provider] - 3-5 Days THEE MCCAULEY MD [Staff Physician] - 7 Days Prescriptions: Temazepam [Restoril] 15 mg PO QHS PRN #15 capsule PRN Reason: Insomnia Acetaminophen/Codeine [Tylenol /Codeine # 3 tab] 1 tab PO Q6H PRN #30 tab PRN Reason: Pain Aspirin EC [Aspirin Enteric Coated TAB] 81 mg PO QDAY #30 tablet.
[2017-04-15] MEDS: NACL 0.9% 1000 ML 1,000 ML IV SCH (09:45)
[2017-04-15] MEDS: LOVENOX SUB-Q SCH (09:46)
[2017-04-15] MEDS ORDERED: PEPCID IV SCH (10:00)
[2017-04-15 12:15] VITALS: BP 107/73
== END 2017-04-15 13:10 | disposition home or self-care (01) | DRG 761 ==
LOC: ED 22:05 → 3A 04-14 08:02
PROVIDERS: ADMIT Internal Medicine; ATTEND Internal Medicine
DX: D27.1 Benign neoplasm of left ovary (principal); I10 Essential (primary) hypertension; K40.90 Unilateral inguinal hernia, without obstruction or gangrene, not specified as recurrent; E87.6 Hypokalemia; D75.1 Secondary polycythemia; J44.9 Chronic obstructive pulmonary disease, unspecified; Z82.49 Family history of ischemic heart disease and other diseases of the circulatory system
CPT/HCPCS: 36415; 71010; 71275; 72197; 74177; 76830; 80048; 81001; 82140; 83690; 84484; 85007; 85025; 85027; 85610; 93005; 93010; 93975; 96374; A9577; J1170; J1650; J2270; J7030; Q9967

== ENCOUNTER 2019-04-11 03:32 | Emergency (ER) | payer MEDICARE, OTHER ==
[2019-04-11 04:22] LABS: Basophils # (Auto) 0.1 K/mm3 (0.0-0.1); Basophils % (Auto) 0.5 % (0.0-1.8); Eosinophils # (Auto) 0.1 K/mm3 (0.0-0.4); Eosinophils % (Auto) 1.1 % (0.0-4.3); Hemoglobin 18.6 gm/dl (10.1-14.3); Lymphocytes # (Auto) 2.2 K/mm3 (1.2-5.4); Mean Corpuscular HGB Conc 32 % (30-34); Mean Corpuscular Volume 81 fl (79-97); Monocytes % (Auto) 7.8 % (0.0-7.3); Red Blood Count 7.08 M/mm3 (3.65-5.03); Red Cell Distribution Width 17.8 % (13.2-15.2)
[2019-04-11 04:40] LABS: Hematocrit 57.4 % (30.3-42.9)
[2019-04-11 04:52] LABS: BUN/Creatinine Ratio 69; Blood Urea Nitrogen 48 mg/dL (7-17); Hemolysis Index 8
[2019-04-11 05:30] LABS: Platelet Count 615 K/mm3 (140-440)
[2019-04-11] MEDS ORDERED: NACL 0.9% 1000 ML 1,000 ML IV ONE ×2 (07:00→09:35)
[2019-04-11] MEDS ORDERED: PROTONIX IV ONE (07:02)
[2019-04-11] MEDS ORDERED: MORPHINE IV ONE (07:02)
[2019-04-11] MEDS ORDERED: ZOFRAN IV ONE (07:02)
[2019-04-11] MEDS ORDERED: ZOSYN/NS 3.375GM/50ML 3.375 GM/50 ML BAG IV ONE (07:30)
[2019-04-11 07:35] LABS: INR 1.04 (0.87-1.13)
[2019-04-11 07:36] LABS: Partial Thromboplastin Time 25.5 Sec. (24.2-36.6)
--- NOTE | 2019-04-11 07:39 | Emergency Department Report ---
ED General Adult HPI - General Chief complaint: GI Bleed Stated complaint: ABD PAIN/BLOOD IN STOOL Time Seen by Provider: 04/11/19 06:50 Source: patient, family Mode of arrival: Ambulatory Limitations: Language Barrier - History of Present Illness Initial comments: This is a 69-year-old female with chronic abdominal pain. She does not speak Yi but she is here with a family member who is also a poor historian. Apparently this patient was admitted here in 2017: 67F who pw abdominal pain. She admitted to having a chronic left inguinal hernia, she has abdominal Imaging that was suspicious for an ovarian mass, however she went on to have a pelvic MRI which only showed a benign dermoid cysts. She also had a left inguinal hernia which was perfectly reducible, it was not incarcerated, CT of her abdomen confirmed this. She also had hypokalemic which was repleted, she was found to have significant polycythemia, given the patient has no smoking history no history of cancer she was started on empiric aspirin therapy. She was referred to a trains service conductor who she should see as an outpatient. Abdominal pain completely resolved prior to discharge. She was discharged home in improved condition Again the patient is attributing her abdominal pain to a chronic and easily reducible left inguinal hernia. As above, she was found to have polycythemia and was referred to a trains service conductor. She had an MRI that showed dermoid cysts. Reason why she came to the emergency department appears to be that her diffuse abdominal discomfort appears to be worse since last night. However, the family states it is clearly a chronic problem. She has not followed up with a primary care physician. She takes no regular medicines. He family member states she had a slight amount of blood in her stool yesterday. -: Gradual, month(s), year(s) Location: pelvis Radiation: non-radiation Quality: aching Improves with: none Worsens with: none Associated Symptoms: denies other symptoms (some nausea no vomiting) Treatments Prior to Arrival: none - Related Data Previous Rx's Medication Instructions Recorded Last Taken Type Acetaminophen/Codeine [Tylenol 1 tab PO Q6H PRN #30 tab 04/15/17 Unknown Rx /Codeine # 3 tab] Aspirin EC 81 mg PO QDAY #30 tablet. 04/15/17 Unknown Rx Temazepam [Restoril] 15 mg PO QHS PRN #15 capsule 04/15/17 Unknown Rx Allergies Allergy/AdvReac Type Severity Reaction Status Date / Time No Known Allergies Allergy Verified 04/14/17 08:24 ED Review of Systems ROS: Stated complaint: ABD PAIN/BLOOD IN STOOL Other details as noted in HPI Constitutional: denies: chills, fever Eyes: denies: eye pain, eye discharge, vision change ENT: denies: ear pain, throat pain Respiratory: denies: cough, shortness of breath, wheezing Cardiovascular: denies: chest pain, palpitations Endocrine: no symptoms reported Gastrointestinal: abdominal pain, nausea, hematochezia (minimal). denies: vomiting, diarrhea Genitourinary: denies: urgency, dysuria, discharge Musculoskeletal: denies: back pain, joint swelling, arthralgia Skin: denies: rash, lesions Neurological: denies: headache, weakness, paresthesias Psychiatric: denies: anxiety, depression Hematological/Lymphatic: denies: easy bleeding, easy bruising ED Past Medical Hx - Past Medical History Previous Medical History?: Yes Hx Hypertension: Yes Additional medical history: ABD HERNIA. Dermoid cysts - Surgical History Past Surgical History?: No - Social History Smoking Status: Never Smoker Substance Use Type: None - Medications Home Medications: Home Medications Medication Instructions Recorded Confirmed Last Taken Type Acetaminophen/Codeine [Tylenol 1 tab PO Q6H PRN #30 tab 04/15/17 Unknown Rx /Codeine # 3 tab] Aspirin EC 81 mg PO QDAY #30 tablet. 04/15/17 Unknown Rx Temazepam [Restoril] 15 mg PO QHS PRN #15 capsule 04/15/17 Unknown Rx ED Physical Exam - General Limitations: Language Barrier General appearance: alert, in no apparent distress - Head Head exam: Present: atraumatic, normocephalic - Eye Eye exam: Present: normal appearance - ENT ENT exam: Present: mucous membranes moist - Neck Neck exam: Present: normal inspection - Respiratory Respiratory exam: Present: normal lung sounds bilaterally. Absent: respiratory distress - Cardiovascular Cardiovascular Exam: Present: regular rate, normal rhythm. Absent: systolic murmur, diastolic murmur, rubs, gallop - GI/Abdominal GI/Abdominal exam: Present: soft, tenderness (mild diffuse), normal bowel sounds, hernia (easily reducible direct left inguinal hernia). Absent: distend ed, guarding, rebound, rigid, organomegaly, mass, bruit, pulsatile mass - Extremities Exam Extremities exam: Present: normal inspection - Back Exam Back exam: Present: normal inspection. Absent: CVA tenderness (R), CVA te nderness (L) - Neurological Exam Neurological exam: Present: alert, oriented X3, CN II-XII intact. Absent: motor sensory deficit - Psychiatric Psychiatric exam: Present: normal affect, normal mood - Skin Skin exam: Present: warm, dry, intact, normal color. Absent: rash ED Course Vital Signs 04/11/19 04/11/19 03:36 06:57 Temperature 98.0 F 98.3 F Pulse Rate 107 H 113 H Respiratory 18 24 Rate Blood Pressure 114/82 Blood Pressure 119/84 [Right] O2 Sat by Pulse 90 96 Oximetry ED Medical Decision Making - Lab Data Result diagrams: 04/11/19 03:57 04/11/19 03:57 Laboratory Results - last 24 hr 04/11/19 04/11/19 04/11/19 03:57 03:57 07:04 WBC 12.2 H RBC 7.08 H Hgb 18.6 H Hct 57.4 H* MCV 81 MCH 26 L MCHC 32 RDW 17.8 H Plt Count 615 H Lymph % (Auto) 18.0 [facility] % (Auto) 7.8 H Eos % (Auto) 1.1 Baso % (Auto) 0.5 Lymph # 2.2 [facility] # 1.0 H Eos # 0.1 Baso # 0.1 Seg Neutrophils % 72.6 H Seg Neutrophils # 8.8 H PT 14.2 INR 1.04 APTT 25.5 Sodium 139 Potassium 4.6 Chloride 100.6 Carbon Dioxide 27 Anion Gap 16 BUN 48 H Creatinine 0.7 Estimated GFR > 60 BUN/Creatinine Ratio 69 Glucose 78 Lactic Acid Calcium 9.0 Magnesium Total Bilirubin Direct Bilirubin Indirect Bilirubin AST ALT Alkaline Phosphatase Total Protein Albumin Albumin/Globulin Ratio Lipase Urine Color Urine Turbidity Urine pH Ur Specific [place] Urine Protein Urine Glucose (UA) Urine Ketones Urine Blood Urine Nitrite Urine Bilirubin Urine Urobilinogen Ur Leukocyte Esterase Urine WBC (Auto) Urine RBC (Auto) Blood Type Antibody Screen 04/11/19 04/11/19 04/11/19 07:04 07:04 07:04 WBC RBC Hgb Hct MCV MCH MCHC RDW Plt Count Lymph % (Auto) [facility] % (Auto) Eos % (Auto) Baso % (Auto) Lymph # [facility] # Eos # Baso # Seg Neutrophils % Seg Neutrophils # PT INR APTT Sodium Potassium Chloride Carbon Dioxide Anion Gap BUN Creatinine Estimated GFR BUN/Creatinine Ratio Glucose Lactic Acid 1.40 Calcium Magnesium 2.10 Total Bilirubin 1.00 Direct Bilirubin 0.2 Indirect Bilirubin 0.8 AST 12 ALT 10 Alkaline Phosphatase 62 Total Protein 7.9 Albumin 3.9 Albumin/Globulin Ratio 1.0 Lipase 10 L Urine Color Urine Turbidity Urine pH Ur Specific [place] Urine Protein Urine Glucose (UA) Urine Ketones Urine Blood Urine Nitrite Urine Bilirubin Urine Urobilinogen Ur Leukocyte Esterase Urine WBC (Auto) Urine RBC (Auto) Blood Type O POSITIVE Antibody Screen Negative 04/11/19 08:43 WBC RBC Hgb Hct MCV MCH MCHC RDW Plt Count Lymph % (Auto) [facility] % (Auto) Eos % (Auto) Baso % (Auto) Lymph # [facility] # Eos # Baso # Seg Neutrophils % Seg Neutrophils # PT INR APTT Sodium Potassium Chloride Carbon Dioxide Anion Gap BUN Creatinine Estimated GFR BUN/Creatinine Ratio Glucose Lactic Acid Calcium Magnesium Total Bilirubin Direct Bilirubin Indirect Bilirubin AST ALT Alkaline Phosphatase Total Protein Albumin Albumin/Globulin Ratio Lipase Urine Color Straw Urine Turbidity Clear Urine pH 6.0 Ur Specific [place] 1.021 Urine Protein <15 mg/dl Urine Glucose (UA) Neg Urine Ketones Tr Urine Blood Neg Urine Nitrite Neg Urine Bilirubin Neg Urine Urobilinogen < 2.0 Ur Leukocyte Esterase Neg Urine WBC (Auto) 1.0 Urine RBC (Auto) 2.0 Blood Type Antibody Screen - Radiology Data Radiology results: report reviewed CT shows dermoid cysts, no acute process, sludge in the gallbladder. Critical care attestation.: If time is entered above; I have spent that time in minutes in the direct care of this critically ill patient, excluding procedure time. ED Disposition Clinical Impression: Dermoid cyst, Polycythemia Abdominal pain Qualifiers: Abdominal location: left upper quadrant Qualified Code(s): R10.12 - Left upper quadrant pain Inguinal hernia Qualifiers: Obstruction and gangrene presence: without obstruction or gangrene Laterality: unilateral Recurrence: recurrent Qualified Code(s): K40.91 - Unilateral inguinal hernia, without obstruction or gangrene, recurrent Disposition: TO HOME OR SELFCARE Is pt being admited?: No Does the pt Need Aspirin: No Condition: Stable Instructions: Inguinal Hernia (ED), Ovarian Cyst (ED) Additional Instructions: It is recommended that you take 2 baby aspirin a day. Follow up with the trains service conductor (Mariah) is recommended. Follow-up with a surgeon (Isaiah) for your hernia is recommended. Follow-up with a senior energy market coordinator (my [facility]) for your ovarian cyst is recommended. Return to the emergency department any acute change or problem. Keep well hydrated. Referrals: JOÃO BENÍTEZ MD [Primary Care Provider] - 3-5 Days [facility] [Provider Group] - 3-5 Days CARLIN ESPARZA MD [Staff Physician] - 3-5 Days CHELSEA JURADO DO [Staff Physician] - 2-3 Days Forms: Accompanied Note Time of Disposition: 09:29
[2019-04-11 08:09] LABS: Albumin 3.9 g/dL (3.9-5); Bilirubin,Direct 0.2 mg/dL (0-0.2)
--- NOTE | 2019-04-11 08:43 | Cat Scan Report ---
CT ABDOMEN PELVIS WITH CONTRAST: HISTORY: abdominal pain. COMPARISON: 04/14/17. TECHNIQUE: Helical CT in 1.25mm intervals following IV contrast. Sagittal and coronal reconstructions. FINDINGS: Lung bases: Adequately aerated. Normal heart size. Liver: Normal. Biliary system: There appears to be minimal noncalcified and agree in the gallbladder which could represent tiny stones or sludge. No biliary dilatation or inflammation. Pancreas: Normal. Spleen: Normal. Kidneys/ureters/bladder: The kidneys and ureters are unremarkable. The bladder is moderately distended. No obvious bladder wall abnormality. Adrenal glands: Normal. Aorta: Normal. Intestines: Limited without oral contrast. There is moderate stool in the proximal colon. No evidence for obstruction or focal inflammation. Appendix: Not confidently identified. Pelvic viscera: The uterus is displaced to the left side of the pelvis. No obvious uterine fibroid disease. There is a 3.1 cm predominantly fat containing lesion in the left adnexa. There appears to be a tiny calcification along the medial margin of this lesion. This could represent a ovarian dermoid or teratoma. The right adnexa is unremarkable. Ascites: None. Adenopathy: None. Musculoskeletal: Osteopenia. Mild thoracolumbar spondylosis. IMPRESSION: No acute inflammatory process is identified. Tiny gallstones or sludge in the gallbladder. No acute cholecystitis. Left ovarian dermoid versus teratoma. Mild fecal retention. Mildly distended bladder.
[2019-04-11 08:59] LABS: Bilirubin,Urine NEG (Negative); Blood,Urine NEG (Negative); Color,Urine Straw (Yellow); Protein,Urine <15 mg/dL mg/dL (Negative); Urobilinogen,Urine < 2.0 mg/dL (<2.0)
[2019-04-11 10:41] LABS: Free T4 (Free Thyroxine) 1.03 ng/dL (0.76-1.46)
[2019-04-11 11:15] VITALS: BP 93/70
== END 2019-04-11 11:24 | disposition home or self-care (01) ==
LOC: ED 03:32
DX: K40.91 Unilateral inguinal hernia, without obstruction or gangrene, recurrent (principal); D36.9 Benign neoplasm, unspecified site; D75.1 Secondary polycythemia; I10 Essential (primary) hypertension; Z79.899 Other long term (current) drug therapy
CPT/HCPCS: 36415; 74177; 80048; 80076; 81001; 82140; 83690; 83735; 84439; 84443; 85025; 85610; 85730; 86850; 86900; 86901; 87040; 87086; 96365; 96375; 99284; C9113; J2270; J2405; J2543; J7030; Q9967

== ENCOUNTER 2021-01-20 22:42 | Emergency (ER) | payer SELFPAY | END 2021-01-20 23:30 | disposition left against medical advice (07) | LOC: ED 22:42 | DX: Z53.21 Procedure and treatment not carried out due to patient leaving prior to being seen by health care provider (principal) ==